=== PATIENT | male | born 1950 | race Caucasian/White ===

== ENCOUNTER 2020-05-14 08:48 | Emergency (ER) | payer MEDICARE, SELFPAY ==
[2020-05-14 08:48] VITALS: BP 182/83; PULSE 90; RESP 15; TEMP 37.1; O2SAT 96; BMI 22.8
--- NOTE | 2020-05-14 08:55 | CT_ITS ---
WS: [id number] CT HEAD NONCONTRAST HISTORY: seizure TECHNIQUE: Contiguous axial imaging performed through the brain in 2.5 mm imaging. Bone and soft tiss ue windows. Sagittal and coronal reformats reviewed. All CT scans at [facility] use at ast one of these dose optimization techniques: automated exposure control; mA and/or kV adjustment pe r patient size (includes targeted exams where dose is matched to clinical indication); or iterative r econstruction. DLP: 816.2 mGy.cm COMPARISON: None available. No acute intracranial hemorrhage, midline shift or mass effect. Moderate atrophy bilaterally with numerous lacunar infarcts and moderate chronic microvascular ischem ic disease. Ventricles: Normal size with no hydrocephalus. Ventricles and extra-axial spaces are prominent. Paranasal sinuses: As visualized are clear. Mastoid air cells: Well pneumatized. Calvarium and scalp: Skull is intact with no soft tissue edema or swelling. CT/CT head wo con* [id number] IMPRESSION: 1. No acute intracranial hemorrhage or edema. 2. Moderate atrophy with numerous small bilateral lacunar infarcts and moderat e chronic microvascular ischemic disease.
--- NOTE | 2020-05-14 08:55 | XR_ITS ---
WS: [id number] PORTABLE CHEST HISTORY: seizure COMPARISON: None available. Lungs are clear and well expanded. No pleural effusion or pneumothorax. Cardiac size: Normal. Mediastinum/Aorta: Normal mediastinum. No osseous abnormality seen. XR/XR chest 1V portable [id number] IMPRESSION: Unremarkable portable chest.
--- NOTE | 2020-05-14 08:56 | ECG_ITS ---
[facility] Test Date: 2020-05-14 Pat Name: Alphonso Choudhary Department: Room: Gender: Male Dehairer: : 1950 Requested By: Eve Guthrie Order Number: [id number] Kiley MD: Stefan Rosales M.D. Measurements Intervals [place] Rate: 91 P: 61 IL: 176 QRS: 14 QRSD: 94 T: 63 QT: 336 QTc: 415 Interpretive Statements SINUS RHYTHM SEPTAL MYOCARDIAL INFARCTION , OF INDETERMINATE AGE [40+ ms Q WAVE IN V1/V2] INTERPRETATION BASED ON A DEFAULT AGE OF 40 YEARS No previous ECG available for comparison Electronically Signed On 05-14-2020 20:18:24 DULSER by Stefan Rosales M.D. [id number]
[2020-05-14 08:57] VITALS: BP 183/79; PULSE 96; RESP 18; O2SAT 95
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
[2020-05-14 09:04] VITALS: BP 183/79; PULSE 96; RESP 18; O2SAT 95
[2020-05-14 09:17] LABS: Basophils % 0.4 %; Eosinophils # 0.1 10^3/uL (0.0-0.8); Eosinophils % 0.8 %; Hematocrit 45.4 % (42.0-52.0); Hemoglobin 14.3 g/dL (11.7-16.6); Lymphocytes # 1.1 10^3/uL (0.8-4.8); Lymphocytes % 15.7 %; Mean Corpuscular HGB Conc 31.5 g/dL (30.0-36.0); Mean Corpuscular Hemoglobin 29.2 pg (28.0-34.0); Mean Corpuscular Volume 92.8 fL (80-94); Mean Platelet Volume 11.9 fL (7.4-10.4); Monocytes # 0.4 10^3/uL (0.2-0.9); Monocytes % 4.9 %; Neutrophils # 5.68 10^3/uL (1.8-7.7); Neutrophils % 78.1 %; Nucleated Red Blood Cells % 0 %; Platelet Count 192 10^3/cmm (130-400); Red Blood Count 4.89 10^6/uL (4.1-5.3); Red Cell Distribution Width 13.7 % (12.1-15.1); White Blood Count 7.3 10^3/uL (4.0-10.0)
[2020-05-14 09:29] LABS: Add Urine Microscopic? NO
[2020-05-14 09:33] LABS: Bilirubin Urine Neg (Negative); Blood Urine Neg (Negative); Glucose Urine UA Norm (Normal); Ketones Urine Negative (Negative); Leukocyte Esterase Urine Negative (Negative); Nitrate Urine Negative (Negative); Protein Urine Neg (Negative); Urine Appearance Clear (CLEAR); Urine Color Yellow (Yellow); Urobilinogen Urine Norm (Negative)
[2020-05-14 09:42] LABS: Amphetamines Screen Urine Negative (Negative); Barbiturates Screen Urine Negative (Negative); Benzodiazepines Screen Urine Negative (Negative); Cocaine Screen Urine Negative (Negative); Opiate Screen Urine Negative (Negative); PCP Screen Urine Negative (Negative); THC Screen Urine Negative (Negative)
[2020-05-14 09:43] LABS: Alanine Aminotransferase < 5 U/L (0-41); Albumin Level 4.1 g/dL (3.5-5.2); Alkaline Phosphatase 125 IU/L (40-130); Anion Gap 13.6 (5-19); Aspartate Amino Transferase 12 U/L (0-40); Blood Urea Nitrogen 12 mg/dL (8-23); Calcium 9.2 mg/dL (8.5-10.5); Carbon Dioxide 28 mmol/L (22-29); Chloride 104 mmol/L (98-107); Creatine Phosphokinase 102 U/L (39-308); Globulin 2.7 g/dL (1.3-4.6); Glomerular Filtration Rate 95.8 mL/min (90-130); Glucose 102 mg/dL (65-115); Magnesium 2.2 mg/dL (1.7-2.3); Osmolality Calculated 294 mOsm/kg (285-295); Potassium 3.6 mmol/L (3.5-5.1); Sodium 142 mmol/L (136-145); Total Bilirubin 0.6 mg/dL (0.15-1.2); Total Protein 6.8 g/dL (6.6-8.7)
[2020-05-14 09:44] LABS: Lactic Sepsis W/Reflex 1.5 mmol/L (0.5-2.2)
[2020-05-14 09:46] LABS: Acetaminophen < 5.0 ug/mL (10-30); Alcohol Level < 10 mg/dL (0-10); Salicylate < 0.3 mg/dL (3-10)
[2020-05-14 11:10] VITALS: BP 164/72; PULSE 97; RESP 18; TEMP 37.1; O2SAT 95
--- NOTE | 2020-05-14 12:13 | DCPLANNER ---
records management manager was asked to schedule a follow up appointment for patient with the office of Dr. Priest. records management manager called the office of Dr. Priest, spoke with Radha, gave clinic patients information. A follow up appointment was scheduled for Wednesday, June 10, 2020 at 1:[address] Priest. records management manager informed patients friend of the scheduled appointment.
--- NOTE | 2020-07-10 07:34 | DCPLANNER ---
Patient had a follow up appointment scheduled for 06.10.[address] Priest - patient did not attend the appointment.
== END 2020-05-14 11:11 ==
PROVIDERS: Emergency Provider Physician Assistant
DX: R56.9 Unspecified convulsions (principal)
CPT/HCPCS: 12345; 70450; 71045; 80053; 80306; 80307; 81003; 82550; 83605; 83735; 85025; 93005; 99283